=== PATIENT | female | born 1980 | race American Indian/Alaskan Native ===

== ENCOUNTER 2021-01-13 19:21 | Emergency (ER) | payer OTHER ==
[2021-01-13] MEDS ORDERED: HYDROcodone/ACETAMINOPHEN 5-325 MG TAB PO ONE (19:45)
[2021-01-13] MEDS ORDERED: cephALEXin 500 MG CAP PO ONE (19:45)
[2021-01-13] MEDS ORDERED: MUPIROCIN 2% OINT 22 GM TP ONE (19:45)
--- NOTE | 2021-01-13 20:05 | Emergency Department Report ---
Burn HPI - History Stated Complaint: BURN Chief Complaint: Burn/Smoke Inhalation Time Seen by Provider: 01/13/21 19:45 Duration of Burn: Today Burn Location: Other (right hand, right foot ) Burn Etiology: Accidental Pain: Moderate Tetanus Status: Up to Date Symptoms:: Yes Blistering (right hand/ right dorsal foot ) - Home Meds and Allergies Home Medications: Home Medications Medication Instructions Recorded Confirmed Last Taken 21/Iron Fu/Folic Acid 1 each PO DAILY 06/15/14 11/20/14 11/13/14 [ Complete Caplet] Previous Rx's Medication Instructions Recorded Last Taken Type HYDROcodone/APAP 5-325 [[place] 1 each PO Q4HR PRN #20 tablet 11/20/14 Unknown Rx 5-325 mg TAB] Ibuprofen [Motrin 800 MG tab] 800 mg PO Q8HR PRN #60 tablet 11/20/14 Unknown Rx cephALEXin [Keflex] 500 mg PO Q8HR 7 Days #21 cap 01/13/21 Unknown Rx traMADoL [Ultram] 50 mg PO Q6HR PRN #12 tablet 01/13/21 Unknown Rx Allergies/Adverse Reactions: Allergies Allergy/AdvReac Type Severity Reaction Status Date / Time Sulfa (Sulfonamide Allergy Itching Verified 06/15/14 19:46 Antibiotics) ED Review of Systems ROS: Stated complaint: BURN Other details as noted in HPI Constitutional: denies: chills, fever Eyes: denies: eye pain, eye discharge, vision change ENT: denies: ear pain, throat pain Respiratory: denies: cough, shortness of breath, wheezing Cardiovascular: denies: chest pain, palpitations Endocrine: no symptoms reported Gastrointestinal: denies: abdominal pain, nausea, diarrhea Genitourinary: denies: urgency, dysuria, discharge Musculoskeletal: denies: back pain, joint swelling, arthralgia Skin: other (2nd degree velasquez to right dorsal hand and right dorsal foot with blistering , pain ) ED Past Medical Hx - Past Medical History Previous Medical History?: Yes Hx Hypertension: No Hx Congestive Heart Failure: No Hx Diabetes: No Hx Deep Vein Thrombosis: No Hx Renal Disease: No Hx Sickle Cell Disease: No Hx Seizures: No Hx Asthma: No Hx COPD: No Hx HIV: No Additional medical history: Hyperemesis gravidarum in first timester of this - Surgical History Past Surgical History?: Yes Additional Surgical History: Ovarian cyst removed in 2008 - Social History Smoking Status: Never Smoker - Medications Home Medications: Home Medications Medication Instructions Recorded Confirmed Last Taken Type 21/Iron Fu/Folic Acid 1 each PO DAILY 06/15/14 11/20/14 11/13/14 His tory [ Complete Caplet] HYDROcodone/APAP 5-325 [[place] 1 each PO Q4HR PRN #20 tablet 11/20/14 Unknown Rx 5-325 mg TAB] Ibuprofen [Motrin 800 MG tab] 800 mg PO Q8HR PRN #60 tablet 11/20/14 Unknown Rx cephALEXin [Keflex] 500 mg PO Q8HR 7 Days #21 cap 01/13/21 Unknown Rx traMADoL [Ultram] 50 mg PO Q6HR PRN #12 tablet 01/13/21 Unknown Rx Exam - Exam General: Vital signs noted. No distress. Alert and acting appropriately. HEENT: Yes Moist Mucous Membranes, No Conjuctival Injection, No Corneal Edema Skin: Yes Erythroderma, Yes Blistering, Yes Tenderness, No Edema Exam: Yes Normal Heart Sounds, No Respiratory Distress, No Sensory Deficits, No Musculoskeletal Pain Exam: 2nd burn to right dorsal hand with blistering, rom intact , distal pulses intact , no muscle damage, right dorsal foot 1 inch splash burn with blister, 2nd degree, burn total less than 1%, distal pulses intact ED Course Vital Signs 01/13/21 19:47 Temperature 97.9 F Pulse Rate 90 Respiratory 18 Rate Blood Pressure 155/102 O2 Sat by Pulse 93 Oximetry - Reevaluation(s) Reevaluation #1: Bacitracin dressing, tetanus is up-to-date, p.o. Keflex, hydrocodone, given wound care instructions including follow-up with PCP in 2 to 3 days for wound check. Symptoms of infection. Take medications as prescribed. Patient verbalized agreement and understanding with same. 01/13/21 20:05 ED Medical Decision Making - Medical Decision Making These are second-degree superficial velasquez. Pain control medications given in ED. Bacitracin dressings applied. Patient given wound care instructions including follow-up primary care doctor in 2 to 3 days. Patient will be DC'd home with prescriptions. Patient verbalized agreement and understanding with discharge plan. Patient DC'd home in stable condition at this time. Critical care attestation.: If time is entered above; I have spent that time in minutes in the direct care of this critically ill patient, excluding procedure time. ED Disposition Clinical Impression: 2nd deg burn hand-mult Qualifiers: Encounter type: initial encounter Laterality: right Qualified Code(s): T23.201A - Burn of second degree of right hand, unspecified site, initial encounter Second degree burn of right foot Qualifiers: Encounter type: initial encounter Qualified Code(s): T25.221A - Burn of second degree of right foot, initial encounter Disposition: HOME / SELF CARE / HOMELESS Is pt being admited?: No Does the pt Need Aspirin: No Condition: Stable Instructions: Burn Care, Adult, Second-Degree Burn, Adult Additional Instructions: Take medications as prescribed, wound care as directed, dressings daily as directed. Return to emergency department should symptoms worsen. Follow-up with your primary care doctor in 2 to 3 days. For wound check Prescriptions: cephALEXin [Keflex] 500 mg PO Q8HR 7 Days #21 cap traMADoL [Ultram] 50 mg PO Q6HR PRN #12 tablet PRN Reason: Pain Referrals: PRIMARY CARE, [Primary Care Provider] - 3-5 Days [facility] [Provider Group] - 3-5 Days Forms: Work/School Release Form(ED) Time of Disposition: 21:08
[2021-01-13 21:21] VITALS: BP 130/68
== END 2021-01-13 21:20 | disposition home or self-care (01) ==
LOC: ED 19:21
DX: T23.291A Burn of second degree of multiple sites of right wrist and hand, initial encounter (principal); T25.221A Burn of second degree of right foot, initial encounter; X08.8XXA Exposure to other specified smoke, fire and flames, initial encounter; Y93.9 Activity, unspecified; Y92.9 Unspecified place or not applicable; Y99.9 Unspecified external cause status; R11.10 Vomiting, unspecified